=== PATIENT | female | born 1970 | race African-American/Black ===

== ENCOUNTER → 2018-03-20 | Outpatient (CLI) | payer OTHER ==
[~2018-03-20] MED LIST: CONTRAST GIVEN. MC PRN; HYDR-2761 PO; IBUP100T7 PO; IOHEXOL 300 MG/ML 100ML VIAL. IV ONE
--- NOTE | 2018-03-20 10:24 | RAD ---
CT of the chest with contrast 03/20/2018 INDICATION: Pulmonary granuloma. COMPARISON STUDY: CT of the abdomen and pelvis December 23, 2015 TECHNIQUE: Multidetector CT imaging of the chest was performed following the administration of IV contrast. CT DOSING PQRS STATEMENT: One or more of the following individualized dose reduction techniques were utilized for this examination: 1. Automated exposure control 2. Adjustment of the mA and/or kV according to patient size 3. Use of iterative reconstruction technique FINDINGS: Heart size is normal. No pericardial effusion is identified. No mediastinal adenopathy is appreciated. No pneumothorax or pleural effusion is seen. No focal consolidative infiltrate is seen. Small calcified granulomata are noted in the left lower lobe. Small calcified lymph nodes are seen in the left hilum. There is a 4 mm noncalcified nodule in the right upper lobe along the minor fissure . Limited visualization of the upper abdomen demonstrates splenomegaly. Irregular calcification and hypodensity is seen within the inferior aspect of the spleen. The appearance of the spleen is unchanged from prior study. No acute osseous changes are identified. IMPRESSION: 1. Changes of prior granulomatous pulmonary disease as described 2. 4 mm noncalcified nodule, right upper lobe lung minor fissure. This most likely as a result of aforementioned granulomatous disease however given noncalcified nature, recommend imaging follow-up based on criteria below. 3. Splenomegaly, and changes involving the inferior spleen, similar to prior study Pulmonary Nodule Followup: Fleischner Society recommendations (Radiology 2005; 237; 395-400): In a low risk patient: 4mm or less - No follow up required. >4-6mm- 12 month follow up, if unchanged, no further follow up. >6-8mm- 6-12 month follow up, then at 18-24 months if no change. >8mm- 3, 9, 24 month follow up or consideration of PET/CT. In a high risk patient: <4mm - 12 month follow up, if unchanged then no further follow up. >4-6mm- 6-12 month follow up, then at 18-24 months if no change. >6-8mm- 3-6 month follow up, then at 9-12 months and 24 months if no change Electronically signed by: Jarrod Truong MD (03/20/2018 10:20 AM) [facility]
== END | disposition home or self-care (01) ==
LOC: CT 09:35
PROVIDERS: ATTEND Family Medicine
DX: J84.10 Pulmonary fibrosis, unspecified (principal); J98.4 Other disorders of lung; R16.1 Splenomegaly, not elsewhere classified
CPT/HCPCS: 71260; Q9967

== ENCOUNTER → 2018-10-21 | Outpatient (CLI) | payer OTHER ==
[~2018-10-21] MED LIST changes: -CONTRAST GIVEN. MC PRN; -IOHEXOL 300 MG/ML 100ML VIAL. IV ONE
--- NOTE | 2018-10-21 13:48 | KCIC ---
ABDOMEN COMPLETE: 10/21/2018 9:00 AM Indication: 48 years old Female. Hyperbilirubinemia. Comparison: None. TECHNIQUE: Sonographic evaluation of the abdomen is performed utilizing grayscale and color Doppler. FINDINGS: Liver: There is diffuse increased echogenicity of the hepatic parenchyma compatible with diffuse hepatocellular disease, most commonly due to steatosis. This decreases the sensitivity of ultrasound for the detection of focal hepatic lesions.. There is hepatopedal flow within the portal venous system. Right hepatic lobe measures 16.1 cm. Biliary system: CBD measures 4.8 mm. There is no intrahepatic or extrahepatic biliary dilatation. Gallbladder: Cholecystectomy Pancreas: Visualized head and uncinate process are unremarkable. Body and tail are not visualized. Spleen: 14.4 cm, Borderline enlarged Right kidney: 9.1 x 3.5 x 5.3 cm. No hydronephrosis. Normal echotexture without focal mass or renal calculus. Left kidney: 10.4 x 3.3 x 4.3 cm. No hydronephrosis. Normal echotexture without focal mass or renal calculus. Abdominal aorta and IVC: Visualized portions unremarkable. Proximal aorta measures 1.8 cm. Mid aorta measures 1. 5 cm and the distal aorta measures 1.5 cm. Free fluid:None. IMPRESSION: 1. Diffuse increased echogenicity of the hepatic parenchyma suggestive of diffuse hepatocellular disease, most commonly due to hepatic steatosis. 2. Splenomegaly measuring 14.4 cm in craniocaudal dimension. 3. Status post cholecystectomy without evidence for intrahepatic or extrahepatic biliary ductal dilatation. Electronically signed by: Mariela Hill MD (10/21/2018 1:45 PM) [id number]
== END | disposition home or self-care (01) ==
LOC: KCIC US 09:00
PROVIDERS: ATTEND Family Medicine
DX: R16.1 Splenomegaly, not elsewhere classified (principal); Z90.49 Acquired absence of other specified parts of digestive tract
CPT/HCPCS: 76700